=== PATIENT | male | born 2000 | race Hispanic/Latino ===

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

== ENCOUNTER 2022-02-19 12:46 | Emergency (ER) | payer OTHER ==
[~2022-02-19] VITALS: Ht 172.7 cm; Wt 61.2 kg
[2022-02-19 12:47] VITALS: BP 112/73; TEMP 98
[2022-02-19] MEDS ORDERED: SERT50TA PO (13:01)
== END 2022-02-19 13:16 | disposition home or self-care (01) ==
LOC: ED 12:46
PROC: 08QNXZZ Repair Right Upper Eyelid, External Approach (ICD-10-PCS; principal; 2022-02-19)
DX: S01.111A Laceration without foreign body of right eyelid and periocular area, initial encounter (principal); W01.190A Fall on same level from slipping, tripping and stumbling with subsequent striking against furniture, initial encounter; Y93.02 Activity, running; Y92.89 Other specified places as the place of occurrence of the external cause
CPT/HCPCS: 99283